=== PATIENT | female | born 1990 | race Caucasian/White ===

== ENCOUNTER 2019-10-18 09:47 | Emergency (ER) | payer OTHER, SELFPAY ==
--- NOTE | ~2019-10-18 | US_ITS ---
EXAMINATION: US right upper quadrant EXAM DATE: 10/18/2019 11:08 INDICATION: Right-sided abdominal pain. TECHNIQUE: Multiple grayscale and Doppler images of the abdomen right upper quadrant were obtained (b y a technologist who performed the scan) and subsequently reviewed. Comparison is made to prior exami nation from 12/21/2013. FINDINGS: The pancreatic head and body are normal in appearance. The pancreatic tail is not visualized. The l iver has normal echogenicity and contour. There are no focal liver lesions identified. There is no evidence of intrahepatic biliary duct dilation. Portal venous flow was seen in the hepatopedal, nor mal direction and has normal Doppler waveform. No right-sided hydronephrosis. Common bile duct measures 5 mm, which is normal. The gallbladder wall is normal in thickness, with ex pected amount of distention. No sonographic evidence of pericholecystic fluid. There is no cholelit hiases. Technologist performing exam reports patient did not demonstrate sonographic Ramos's sign. Please note that this sign is less reliable in patients who have received pain medication. IMPRESSION: 1. Unremarkable abdominal ultrasound exam. Reviewed, dictated and finalized at location A. 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
[2019-10-18 10:00] VITALS: BP 122/73; PULSE 91; RESP 16; TEMP 37.1; O2SAT 100
[2019-10-18] MEDS: MAG HYDROX/AL HYDROX/SIMETH 30 ML UDC PO (10:24)
[2019-10-18 10:32] LABS: Basophils Absolute Auto 0.05 K/mm3 (0.00-0.10); Basophils Percent Auto 0.8 % (0.0-1.0); Eosinophils Absolute Auto 0.11 K/mm3 (0.02-0.50); Eosinophils Percent Auto 1.8 % (1.0-6.0); Hematocrit 40.3 % (35.0-49.0); Hemoglobin 13.5 g/dL (12.0-15.0); Immature Granulocyte Absolute 0.01 K/mm3 (0.00-0.00); Immature Granulocyte Percent A 0.2 % (0.0-0.0); Lymphocytes Absolute Auto 2.03 K/mm3 (1.10-4.50); Lymphocytes Percent Auto 33.7 % (18.0-42.0); Mean Corpuscular HGB Conc 33.5 g/dL (32.0-36.0); Mean Corpuscular Hemoglobin 30.1 pg (27.0-31.0); Mean Corpuscular Volume 89.8 fL (78.0-102.0); Mean Platelet Volume 11.8 fl (9.2-11.8); Monocytes Absolute Auto 0.38 K/mm3 (0.10-0.90); Monocytes Percent Auto 6.3 % (2.0-11.0); Neutrophils Absolute Auto 3.5 K/mm3 (1.7-7.2); Neutrophils Percent Auto 57.2 % (50.0-70.0); Platelet Count Result 232 K/mm3 (150-420); Red Blood Count 4.49 M/mm3 (4.20-5.40); Red Cell Distribution Width 12.2 % (11.6-14.4)
[2019-10-18 10:33] LABS: Add Urine Microscopic? YES; Appearance Urine Clear (Clear); Bilirubin Urine Negative (Negative); Blood Urine 1+ (Negative); Color Urine Yellow (Yellow); Glucose Urine UA Negative (Negative); Ketones Urine Negative (Negative); Leukocyte Esterase Ur Negative (Negative); Nitrate Urine Negative (Negative); Protein Urine Negative (Negative); Specific Grav Ur 1.025 (1.010-1.020); pH Urine 6.5 (5.0-8.0)
[2019-10-18] MEDS: SODIUM CHLORIDE 0.9% IV 500 ML 999 ML IV CONT (10:35)
[2019-10-18 10:37] LABS: RBC Urine 0-2 /hpf (0-2); Squamous Epithelial Cell Urine Moderate /hpf (Few); WBC Urine 0-3 /hpf (0-3)
[2019-10-18 10:38] LABS: Bacteria Urine Trace /hpf
[2019-10-18 10:40] LABS: Specific Gravity Ur 1.025 (1.010-1.035); Urine Pregnancy Test Negative
--- NOTE | 2019-10-18 10:40 | PC.NURSE ---
Pt. taken to [facility], report given to Keith Chaidez
[2019-10-18 10:49] LABS: Alanine Aminotransferase 12 U/L (14-59); Albumin Level 4.1 g/dL (3.4-5.0); Alkaline Phosphatase 45 U/L (46-116); Anion Gap 11.3 mmol/L (7-16); Aspartate Amino Transferase 12 U/L (15-37); Bilirubin,Total 0.4 mg/dL (0.00-1.00); Blood Urea Nitrogen 9 mg/dL (7-18); Calcium 9.1 mg/dL (8.5-10.1); Carbon Dioxide 28 mmol/L (21-32); Chloride 105 mmol/L (98-108); Estimated CRCL calculation 64 ml/min; Estimated Glomerular Filt Rate > 60; Glucose 94 mg/dL (70-99); Osmolality Calculated 288 mOsm/kg (285-295); Potassium 4.3 mmol/L (3.5-5.1); Sodium 140 mmol/L (136-145); Total Protein 7.3 g/dL (6.4-8.2)
--- NOTE | 2019-10-18 12:01 | ED.ABDPAIN ---
HPI - Abdominal Pain General Chief Complaint: Abdominal Pain Stated Complaint: R side stabbing pain over last 2 weeks Source: patient Mode of arrival: ambulatory History of Present Illness HPI narrative: A 29-year-old female presents with some right upper quadrant and epigastric pain she rates about a 4/10 as often on over the last 2 weeks with no dysuria no fever or chills no nausea vomiting no diarrhea constipation. The patient is status post appendectomy and has history of endometriosis with some surgical repair. 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 MD elicited complaint: abdominal pain Pertinent past history: none Pain Consistency: intermittent Location: epigastric and RUQ Severity: moderate Pain scale (0-10): 4 Quality: stabbing and burning Radiation: none Migration to: no migration Exacerbating factors: eating Relieving factors: nothing Related Data Home Medications Medication Instructions Recorded Confirmed etonogestrel [Nexplanon] 1 implant SUBDERMAL ONCE 10/03/19 10/18/19 Allergies Allergy/AdvReac Type Severity Reaction Status Date / Time venom-honey bee Allergy Mild Swelling Verified 10/03/19 16:25 lidocaine Allergy Vomiting Verified 10/03/19 16:25 Review of Systems Review of Systems: All systems reviewed & are unremarkable except as noted in HPI and below PMFSH Past Medical History Medical History Endometriosis Family History Family History Father Family history of diabetes mellitus in first degree relative Social History Social History Smoking status: Never smoker Alcohol intake: current Exam Const: General: no acute distress and alert Orientation/consciousness: patient oriented x3 Limitations: altered mental status HENMT: Head: normal to inspection Eyes: Conjunctivae: conjunctivae normal Pupils: Equal, round and reactive pupils present Neck: Neck: normal visual inspection Chest: Chest palpation & inspection: normal inspection of the chest Resp: Effort & Inspection: normal respiratory effort Auscultation: clear to auscultation bilaterally Cardio: Rate: regular rate Rhythm: regular rhythm GI: GI Palp: Yes Soft to palpation and Yes Tenderness to palpation present (GI) : General: Yes no CVA tenderness Urinary Catheter: Urinary Catheter: patent and draining Back/Spine/Pelvis: Back: no CVA tenderness Skin: General skin exam: normal color Rashes: no rashes Neuro: General: patient oriented x3 and moves all extremities Extrem: General: normal to inspection Course Vital Signs Vital signs: Vital Signs Temperature 37.1 C 10/18/19 10:00 Pulse Rate 91 10/18/19 10:00 Respiratory Rate 16 10/18/19 10:00 Blood Pressure 122/73 10/18/19 10:00 Pulse Oximetry 100 10/18/19 10:00 Temperature 37.1 C 10/18/19 10:00 Pulse Rate 91 10/18/19 10:00 Respiratory Rate 16 10/18/19 10:00 Blood Pressure 122/73 10/18/19 10:00 Pulse Oximetry 100 10/18/19 10:00 MDM - Abdominal Pain Differential Diagnosis Differential diagnosis: Likely abdominal pain Lab Data Result diagrams: 10/18/19 10:27 10/18/19 10:27 Labs: Lab Results 10/18/19 10/18/19 10/18/19 Range/Units 10:26 10:27 10:27 WBC 6.0 (4.8-10.8) K/mm3 RBC 4.49 (4.20-5.40) M/mm3 Hgb 13.5 (12.0-15.0) g/dL Hct 40.3 (35.0-49.0) % MCV 89.8 (78.0-102.0) fL MCH 30.1 (27.0-31.0) pg MCHC 33.5 (32.0-36.0) g/dL RDW 12.2 (11.6-14.4) % Plt Count 232 (150-420) K/mm3 MPV 11.8 (9.2-11.8) fl Immature Gran % (Auto) 0.2 H (0.0-0.0) % Neut % (Auto) 57.2 (50.0-70.0) % Lymph % (Auto) 33.7 (18.0-42.0) % [place] % (Auto) 6.3 (2.0-11.0) % Eos % (Auto) 1.8 (1.0-6.0) % Baso % (Auto) 0.8 (0.0-1.0) % Lymph # (Auto) 2.03 (1.10-4.50) K/mm
[2019-10-18 12:10] VITALS: BP 103/64
[2019-10-19 09:23] LABS: Pregnancy On Board Control Negative
== END 2019-10-18 12:15 | disposition home or self-care (01) ==
PROVIDERS: Emergency Provider Emergency Medicine
DX: R10.13 Epigastric pain (principal); K21.9 Gastro-esophageal reflux disease without esophagitis
CPT/HCPCS: 36415; 76705; 80053; 81001; 81025; 85025; 96360; 99283; A9270; J7040

== ENCOUNTER 2020-02-06 00:30 | Outpatient (CLI) | payer OTHER, SELFPAY ==
[2020-02-06 16:10] LABS: SARS-CoV-2 RNA PCR Negative
== END 2020-02-06 00:31 | disposition home or self-care (01) ==
LOC: ANHCOVIDDT 00:30
PROVIDERS: Visit Provider Obstetrics & Gynecology
DX: Z01.818 Encounter for other preprocedural examination (principal); Z11.59 Encounter for screening for other viral diseases
CPT/HCPCS: 87635; C9803; U0003

== ENCOUNTER 2020-02-08 01:47 | Day surgery (SDC) | payer OTHER, SELFPAY ==
[2020-02-03 08:40] VITALS: BMI 21.3
[2020-02-08] VITALS (10 sets, daily range): BP systolic 81–106; BP diastolic 43–64; PULSE 60–100; RESP 12–17; TEMP 36.6; O2SAT 94–100
[2020-02-08] MEDS: LACTATED RINGERS 1,000 ML 30 ML IV CONT ×2 (09:00→12:40)
--- NOTE | 2020-02-08 09:28 | WPDANESEPPF ---
Anes - Initial Pre Proc Eval Procedure: Operation Date: 02/08/20 10:30 Proposed Procedures p Diagnostic Laparoscopy - Melany Sommers MD Date/Time: 02/08/20 09:28 Surgeon: Melany Sommers MD Pre Op Diagnosis: Pelvic Pain Patient Data Age: 29 Gender: F Height: 5 ft 1 in Weight: 51.1 kg Last Vital Signs Temp 36.6 C 02/08/20 09:11 Pulse 76 02/08/20 09:11 Resp 16 02/08/20 09:11 BP 106/64 02/08/20 09:11 Pulse Ox 100 02/08/20 09:11 Allergies Allergy/AdvReac Type Severity Reaction Status Date / Time venom-honey bee Allergy Mild Swelling Verified 02/08/20 08:42 lidocaine AdvReac Vomiting Verified 02/08/20 08:42 Home Medications Medication Instructions Recorded Confirmed Type etonogestrel [Nexplanon] 1 implant SUBDERMAL ONCE 10/03/19 02/03/20 History Patient hx anesthesia problems: none Family hx anesthesia problems: none PMFSH Past Medical History Medical History Endometriosis Pneumothorax Family History Family History Father Family history of diabetes mellitus in first degree relative Social History Social History Smoking status: Never smoker Alcohol intake: current Anes - Eval Final PreProcedure Day of Procedure 02/08/20 09:28 Patient weight: normal Heart: regular rate and rhythm Lungs: clear to auscultation Airway: Mallampati scale class II Neurological: alert and oriented Last oral intake: >/= 8 hours ASA classification: I Emergent: no Anesthetic plan: proceed Anesthesia type and monitoring: general ETT and standard monitoring Informed Consent: The patient's anesthetic plan and its attendant risks and benefits were discussed with the patient/family/POA. Questions were solicited and answers provided to the satisfaction of the patient/family/POA.
--- NOTE | 2020-02-08 09:57 | WPDHPUPDATE1 ---
History and Physical Update Update Date/Time: 02/08/20 09:57 History and Physical has been reviewed, including an updated exam of the patient. There are NO changes in the patient's condition. Risks, benefits, and alternatives have been discussed and questions answered. Patient agrees to proceed with procedure.
[2020-02-08] MEDS: KETOROLAC 30 MG/ML VIAL (*BKC) IV PUSH (11:07)
--- NOTE | 2020-02-08 12:25 | SUR.OPER ---
EBL:10cc
--- NOTE | 2020-02-08 12:44 | P.OP_ITS ---
Procedure Note - Detailed Date of procedure: 02/08/20 Pre-op diagnosis: Pelvic Pain Procedure performed: Diagnostic laparoscopy, radical resection endometriosis and posterior pelvic peritoneum. This resection of endometrial just took over 90 minutes. Description of procedure: The patient was taken the operating room. She was prepped and draped in the dorsal lithotomy position after induction of general anesthesia. A 5 mm left upper quadrant incision was made in the abdominal skin with a scalpel. A 5 mm trocar was inserted the intra-abdominal cavity under direct visualization of the scope. A 5 mm left lower quadrant incision was made with the scalp on the abdominal skin and a 5 mm trocar was inserted the intra- abdominal cavity under direct visualization of the scope. A 5 mm infraumbilical incision was made with scalpel and a 5 mm trocar was inserted into the intra- abdominal cavity under direct visualization of the scope. Using sharp and blunt dissection the ureters were dissected revealed from the pelvic brim to the uterine arteries. The peritoneum on both sides of the pelvis was resected using sharp and blunt dissection with recognition of the ureters position. The resection extended laterally to the fallopian tubes. Immediately extended to the perirectal space. An anteriorly to the midline of the cervix. Throughout sharp blunt dissection was used along with cautery. Once completed the whole area was examined. Portion of the bowel in the surgical area was examined thoroughly. Interceed was placed on the bilateral posterior cul-de-sac and ovarian fossa. This was done after irrigation of the pelvis with copious normal saline. The pneumoperitoneum was reduced. The trocars were removed. The patient was taken recovery room stable condition. Sponge lap and needle counts were correct x2. Anesthesia: GETA Surgeon: Melany Sommers MD Estimated blood loss (mL): 20 Drains: No Packing: No Complications: No immediate complications Condition: stable Disposition: PACU Findings: Endometriosis in the posterior cul-de-sac. There was scarring throughout the posterior cul-de-sac. There was thickened peritoneal surfaces. There was a left paratubal cyst. It was about 2-1/2 cm in size. The ovaries and tubes appeared normal. The uterus appeared normal. The bladder dome appeared normal.
[2020-02-08] MEDS: ONDANSETRON INJ 4 MG/2 ML VIAL IV PUSH (14:05)
[2020-02-08] MEDS: ONDANSETRON HCL ODT 4 MG TABLET PO (15:00)
[2020-02-08] MEDS: SCOPOLAMINE 1.5 MG PATCH TRANSDERM (15:19)
--- NOTE | 2020-02-08 15:20 | SUR.PHASEII ---
SCOPALAMINE PATCH BEHIND RIGHT EAR UPON ARRIVAL TO OP. DR. HITCHCOCK CALLED RE: PERSISTENT NAUSEA. ZOFRAN ODT GIVEN. DR. LONG CALLED RE: PERSISTENT NAUSEA AFTER IV REMOVED. PT ASKED FOR ZOFRAN SCRIPT TO BE SENT TO HOME PHARMACY. MESSAGE RELAYED TO OR STAFF TO RELAY TO DR. LONG. PT INFORMED OF PLAN.
== END 2020-02-08 15:15 | disposition home or self-care (01) ==
PROVIDERS: Visit Provider Obstetrics & Gynecology
PROC: (CPT 49320; principal; 2020-02-08 10:30)
DX: N85.8 Other specified noninflammatory disorders of uterus (principal); N83.8 Other noninflammatory disorders of ovary, fallopian tube and broad ligament; K66.1 Hemoperitoneum; R10.2 Pelvic and perineal pain
CPT/HCPCS: 58662; 88305; A9270; J0131; J1100; J1170; J1200; J1885; J2250; J2405; J2704; J2710; J3010; J7120

== ENCOUNTER 2021-07-25 09:36 | Emergency (ER) | payer OTHER, SELFPAY ==
[2021-07-25] VITALS (18 sets, daily range): BP systolic 102–129; BP diastolic 72–85; PULSE 88–118; RESP 17–38; TEMP 36.5; O2SAT 98–100
--- NOTE | ~2021-07-25 | XR_ITS ---
EXAMINATION: XR chest 1V portable INDICATION: Midsternal chest pain TECHNIQUE: Portable AP chest at 1008 hours COMPARISON: 03/03/2016 FINDINGS: The lungs are free of acute opacities. There is no pleural effusion or pneumothorax. The ca rdiomediastinal silhouette is normal. The visualized bones and soft tissues are unremarkable. IMPRESSION: 1. No acute cardiopulmonary abnormality. Reviewed, dictated and finalized at location B. GER BEHAVIOR
--- NOTE | 2021-07-25 09:52 | ECG_ITS ---
Measurements Intervals [place] Rate: 105 P: 46 NE: 124 QRS: -19 QRSD: 94 T: -70 QT: 321 QTc: 425 Interpretive Statements SINUS TACHYCARDIA POSSIBLE LEFT ATRIAL ENLARGEMENT INCOMPLETE RIGHT BUNDLE BRANCH BLOCK BORDERLINE ST-T WAVE ABNORMALITY- DIFFUSE LEADS BASELINE ARTIFACT- II, III, AVR, AVF, V1, V3-V6 BORDERLINE ECG Electronically Signed On 07-25-2021 19:25:58 SPIRITUAL MINISTER by Gage Villafana D.O.
[2021-07-25 10:07] LABS: Basophils Absolute Auto 0.1 K/mm3 (0.0-0.1); Basophils Percent Auto 0.4 % (0.2-1.2); Eosinophils Absolute Auto 0.1 K/mm3 (0-0.3); Eosinophils Percent Auto 0.6 % (0-4.4); Hematocrit 40.8 % (37.0-47.0); Hemoglobin 14.1 g/dL (12.0-15.0); Immature Granulocyte Absolute 0.04 K/mm3 (0.00-0.031); Immature Granulocyte Percent A 0.3 % (0-0.5); Lymphocytes Absolute Auto 2.16 K/mm3 (0.9-3.2); Mean Corpuscular HGB Conc 34.6 g/dl (32-36); Mean Corpuscular Hemoglobin 30.5 pg (26-34); Mean Corpuscular Volume 88.1 fl (80-100); Mean Platelet Volume 11.4 fl (7.4-10.4); Monocytes Absolute Auto 0.6 K/mm3 (0.1-0.6); Monocytes Percent Auto 4.2 % (2.6-8.5); Neutrophils Absolute Auto 11.4 K/mm3 (1.3-6.7); Neutrophils Percent Auto 79.5 % (45.5-73.1); Platelet Count Result 270 k/mm3 (150-375); Red Blood Count 4.63 M/mm3 (4.2-5.4); Red Cell Distribution Width 12.1 % (11.5-14.5); White Blood Count 14.4 K/mm3 (4.5-10.0)
[2021-07-25 10:13] LABS: Add Urine Microscopic? YES; Appearance Urine Clear (Clear); Bacteria Urine Trace /hpf; Bilirubin Urine Negative (Negative); Blood Urine Negative (Negative); Color Urine Yellow (Yellow); Glucose Urine UA Negative (Negative); Ketones Urine Negative (Negative); Leukocyte Esterase Ur Negative LEU/UL (Negative); Mucus Urine Rare /lpf; Nitrate Urine Negative (Negative); Protein Urine Negative (Negative); Specific Grav Ur 1.019 (1.001-1.035); Squamous Epithelial Cell Urine Few /hpf (Few); WBC Urine 0-3 /hpf
[2021-07-25 10:18] LABS: D Dimer 0.31 ug/mL (<0.48)
[2021-07-25 10:25] LABS: Alanine Aminotransferase 11 U/L (4-35); Albumin Level 4.6 g/dL (3.5-5.1); Alkaline Phosphatase 41 U/L (38-126); Anion Gap 9 mmol/L (8-16); Aspartate Amino Transferase 18 U/L (14-36); Bilirubin,Total 0.8 mg/dL (0.2-1.3); Blood Urea Nitrogen 12 mg/dL (7-17); Calcium 9.3 mg/dL (8.4-10.2); Carbon Dioxide 24 mmol/L (22-30); Chloride 106 mmol/L (98-107); Estimated CRCL calculation 75 ml/min; Estimated Glomerular Filt Rate > 60; Glucose 88 mg/dL (65-110); Potassium 3.8 mmol/L (3.4-5.0); Sodium 139 mmol/L (137-145)
[2021-07-25 10:38] LABS: Troponin I < 0.012 ng/mL (0.000-0.034)
[2021-07-25] MEDS: LORazepam INJ (*CRX) 2 MG/ML VIAL 1 MG IV PUSH (11:18)
--- NOTE | 2021-07-25 11:42 | ED.CHESTPAIN ---
HPI - Chest Pain General Chief Complaint: Chest Pain Stated Complaint: CP Time Seen by Provider: 07/25/21 09:52 Source: patient Mode of arrival: ambulatory Limitations: no limitations History of Present Illness HPI narrative: Patient is a 31-year-old female presented with chief complaint of sternal chest pain that began while at work at approximately 6:45 AM. Patient reports the pain radiated to her right shoulder and she felt some tingling in her fingertips of her job told her to come to the emergency department to be evaluated. Patient reports it feels like the way is on her chest. Patient denies shortness of breath. Patient denies syncope, fever, chills, cough, wheezing or congestion. Patient reports having a history of anxiety but reports that she is not on medication at this time. Patient denies cardiac or respiratory history. Patient denies smoking or use of recreational drugs. Related Data Home Medications Medication Instructions Recorded Confirmed medroxyprogesterone [Depo-Provera 150 mg IM [id number] 07/25/21 Contraceptive] Allergies Allergy/AdvReac Type Severity Reaction Status Date / Time fentanyl Allergy Mild Rash Verified 07/25/21 09:46 venom-honey bee Allergy Mild Swelling Verified 07/25/21 09:46 lidocaine AdvReac Vomiting Verified 07/25/21 09:46 Review of Systems Review of Systems: CONSTITUTIONAL: Denies fever, chills, or sweats. EYES: Denies visual changes, redness, or discharge. ENT: Denies rhinorrhea, congestion, sore throat, or otalgia. CARDIOVASCULAR: Reports chest pain denies palpitations, or edema. RESPIRATORY: Denies cough or dyspnea. GASTROINTESTINAL: Denies abdominal pain, nausea, vomiting, or diarrhea. GENITOURINARY: Denies dysuria or hematuria. SKIN: Denies rash or itching. MUSCULOSKELETAL: Denies back pain, joint pain, or myalgia. NEUROLOGIC: Denies headache, numbness, dizziness, or weakness. PSYCHIATRIC: Denies anxiety or depression. [facility] Past Medical History Medical History (Updated 07/25/21 @ 14:54 by Trinity Leon PA-C) Endometriosis Pneumothorax Family History Family History Father Family history of diabetes mellitus in first degree relative Social History Social History Smoking status: Never smoker Alcohol intake: current Exam Narrative: GENERAL: Well-appearing, well-nourished, and in no acute distress. Patient speaking without difficulty or signs of discomfort. HEAD: Normocephalic, atraumatic. EYES: PERRLA and EOMI. ENT: Nares clear, no rhinorrhea or epistaxis. Mucous membranes moist. Oropharynx without tonsillar hypertrophy exudate or other lesions. Bilateral TMs pearly wade nonbulging NECK: Supple. No adenopathy or masses. Range of motion intact. CHEST: Not painful with palpation. Clear to auscultation. No respiratory distress. No wheezes rales or rhonchi HEART: Regular rate and rhythm. No murmur heard. Normal peripheral pulses. EXTREMITIES: Normal range of motion. No edema. SKIN: Warm, dry, no rash. NEURO: No focal deficits. Alert and oriented x3. PSYCH: Normal mood and affect. Course Vital Signs Vital signs: Vital Signs Temperature 97.7 F 07/25/21 09:40 Pulse Rate 118 H 07/25/21 09:40 Respiratory Rate 18 07/25/21 09:40 Blood Pressure 114/85 07/25/21 09:40 Pulse Oximetry 98 07/25/21 09:40 Temperature 97.7 F 07/25/21 14:06 Pulse Rate 89 07/25/21 15:51 Respiratory Rate 18 07/25/21 15:51 Blood Pressure 107/78 07/25/21 15:51 Pulse Oximetry 100 07/25/21 13:36 MDM - Chest Pain MDM Narrative Medical decision making narrative: Patient's work-up is negative for any emergent findings. Patient's heart score is low and recommendation is to discharge. Patient does not have any distress. Chest x-ray is negative. Patient instructed to follow-up primary care for further investigation as her symptoms.
[2021-07-25] MEDS: ASPIRIN 81 MG CHEWABLE TABLET 324 MG PO (12:20)
[2021-07-25] MEDS: KETOROLAC 15 MG/ML VIAL (*BKC) IV PUSH (13:36)
[2021-07-25 13:39] LABS: Troponin I < 0.012 ng/mL (0.000-0.034)
== END 2021-07-25 15:53 | disposition home or self-care (01) ==
PROVIDERS: Physician Assistant; Emergency Provider Emergency Medicine
DX: R07.9 Chest pain, unspecified (principal)
CPT/HCPCS: 36415; 71045; 80053; 81001; 81025; 84484; 85025; 85380; 93005; 96374; 96375; 99284; A9270; J1885; J2060

== ENCOUNTER 2023-02-11 13:24 | Outpatient (CLI) | payer OTHER, SELFPAY ==
--- NOTE | ~2023-02-11 | MMUS_ITS ---
EXAMINATION: MM diagnostic rose marie BI w kerrie, US breast BI complete HISTORY: Bilateral breast lumps, lower inner quadrant of left breast for 7 years, posterior mid lower right breast for a couple of months TECHNIQUE: ML, MLO and CC 3-D tomosynthesis images of both breasts were performed and synthetic 2-D i mages were generated. CAD analysis was submitted and interpreted. High resolution bilateral complete breast ultrasound examination including all 4 quadrants and subareolar areas was performed. COMPARISON: 01/12/2017 complete left breast ultrasound examination, reported normal BREAST PARENCHYMAL COMPOSITION: The breasts are extremely dense, which lowers the sensitivity of mamm ography. FINDINGS: MAMMOGRAPHIC FINDINGS: No suspicious mass or architectural distortion, malignant calcification, skin thickening or retractio n is detected. Very dense stroma may obscure masses. Bilateral complete breast ultrasound examination was performed, particularly given the clinical complaint of bilateral breast lumps. ULTRASOUND: Right breast: No suspicious right breast mass or shadowing, cyst or other significant abnormality of the right ruby st is detected. Left breast: 2:00 near nipple: Septated 2.4 x 8 mm cyst 6:00 1 cm from nipple: Parallel circumscribed hypoechoic lesion measuring 8.8 x 6.3 x 2.1 mm, without internal vascularity or posterior shadowing IMPRESSION: 1. Benign findings; no mammographic evidence of malignancy 2. Routine annual mammographic screening is recommended beginning at age 40 BI-RADS Category 2: Benign finding(s). Reviewed, dictated and finalized at location A. IMPRESSION: 1. Benign findings; no mammographic evidence of malignancy 2. Routine annual mammographic screening is recommended beginning at age 40 BI-RADS Category 2: Benign finding(s).
== END 2023-02-11 13:25 | disposition home or self-care (01) ==
LOC: ANHIMG 13:27
PROVIDERS: Visit Provider Nurse Practitioner Women's Health
DX: N64.59 Other signs and symptoms in breast (principal)
CPT/HCPCS: 76641; 77062; 77066; G0279